=== PATIENT | female | born 1935 | race African-American/Black ===

== ENCOUNTER 2023-10-11 16:47 | Inpatient (IN) ==
[2023-10-11 20:29] LABS: HEMOGLOBIN 13.5 g/dL (12.0-16.0); RED BLOOD COUNT 5.03 X10^6/uL (3.5-5.4)
[2023-10-11 20:35] LABS: BASOPHILS # (AUTO) 0.1 X10^3/uL (0.0-0.1); BASOPHILS % (AUTO) 1.1 % (0.2-1.0); EOSINOPHILS # (AUTO) 0.1 x10^3/uL (0.0-0.2); EOSINOPHILS % (AUTO) 2.5 % (0.9-2.9); HEMATOCRIT 41.6 % (36.0-47.0); LYMPHOCYTES # (AUTO) 2.3 X10^3/uL (1.3-2.9); LYMPHOCYTES % (AUTO) 50.6 % (21.0-51.0); MEAN CORPUSCULAR HEMOGLOBIN 26.9 pg (27.0-34.0); MEAN CORPUSCULAR HGB CONC 32.5 g/dL (33.0-35.0); MEAN CORPUSCULAR VOLUME 82.9 fL (80.0-100.0); MEAN PLATELET VOLUME 9.3 fL (7.4-11.0); MONOCYTES # (AUTO) 0.3 x10^3/uL (0.3-0.8); NEUTROPHILS # (AUTO) 1.8 x10^3/uL (2.2-4.8); NEUTROPHILS % (AUTO) 38.8 % (42.0-75.0); PLATELET COUNT 193 X10^3/uL (150.0-450.0); RED CELL DISTRIBUTION WIDTH 16.5 % (11.6-16.5); WHITE BLOOD COUNT 4.6 X10^3/uL (3.6-10.0)
[2023-10-11 20:38] LABS: INR 1.01 (0.8-1.3)
[2023-10-11 20:44] LABS: ALANINE AMINOTRANSFERASE 13 Units/L (12-78); ALBUMIN 3.2 g/dL (3.4-5.0); ALKALINE PHOSPHATASE 96 Units/L (46-116); ASPARTATE AMINO TRANSFERASE 19 Units/L (15-37); BLOOD UREA NITROGEN 14 mg/dL (7-18); CALCIUM 9.9 mg/dL (8.5-10.1); CARBON DIOXIDE 26.5 mmol/L (21-32); CHLORIDE 107 mmol/L (98-107); COR CA(FOR HYPOALB) 10.5 mg/dL (8.5-10.1); CREATININE 0.95 mg/dL (0.55-1.02); GLUCOSE 70 mg/dL (65-99); SODIUM 143 mmol/L (136-145); TOTAL PROTEIN 8.4 g/dL (6.4-8.2); eGFR NON BLACK RACES 59 (>60)
[2023-10-11 20:52] VITALS: BMI 19.3
[2023-10-11] MEDS: CRESTOR TAB 10 MG PO SCH (21:24)
[2023-10-11] MEDS: COREG TAB 3.125 MG PO SCH (21:25)
[2023-10-11] MEDS: HEPARIN SODIUM INJ 5000 UNITS IVP ONE (21:29)
[2023-10-11] MEDS: HEPARIN SODIUM IN D5W 25,000 UNITS/500 ML BAG IV PRN (21:49)
[2023-10-11] MEDS: NS 100 ML IV 100 ML ONE (22:50)
[2023-10-11] MEDS: OMNIPAQUE 350 mg/mL 50 mL BTL 50 ML ONE (22:50)
[2023-10-11] MEDS: OMNIPAQUE 350 mg/mL 100 mL BTL 100 ML ONE (22:50)
[2023-10-11] MEDS: LR 1,000 ML IV 1,000 ML IV SCH (23:29)
[2023-10-11] MEDS: HIBICLENS WASH EXT ONE (23:29)
--- NOTE | 2023-10-12 00:07 | CT ---
EXAM: CTA AORTA WITH RUNOFF HISTORY: to evalute critical ischemia right leg; COMPARISON: None. TECHNIQUE: Axial CT images of the abdomen, pelvis and lower extremities were obtained prior to and after the ad ministration of 150 mL Omnipaque 350 IV contrast during the arterial phase. Images were reformatted w ith a 3D angiographic technique for further evaluation. Radiation dose: 958.52 mGy-cm total DLP FINDINGS: Aorta: Atherosclerotic changes with no aneurysm. No clinically significant stenosis or occlusion. Mesenteric arteries/Celiac trunk: Atherosclerotic changes. No clinically significant stenosis, occlus ion or aneurysm. Renal arteries: Atherosclerotic changes. No clinically significant stenosis, occlusion or aneurysm. Right iliac arteries: Atherosclerotic changes. No clinically significant stenosis, occlusion or aneur ysm. Left iliac arteries: Atherosclerotic changes. No clinically significant stenosis, occlusion or aneury sm. Right femoral arteries/popliteal artery: Atherosclerotic changes. Moderate stenosis in the right supe rficial femoral artery secondary to atherosclerotic disease. Left femoral arteries/popliteal artery: Atherosclerotic changes. Stent in the left superficial femora l artery. No clinically significant stenosis or occlusion. Right infrapopliteal arteries: Atherosclerotic changes. No occlusion or aneurysm. 3 vessel runoff. Left infrapopliteal arteries: Atherosclerotic changes. No occlusion or aneurysm. 3 vessel runoff. Lung bases are clear. No acute osseous abnormality. Stomach and proximal small bowel appear normal. Solid visceral organs of the upper abdomen are unremarkable. Gallbladder appears normal. No biliary dilatation. Bilateral renal cysts. Otherwise, unremarkable appearance of the kidneys and ureters. No urinary calculus identified. Urinary bladder is unremarkable. Colonic diverticulosis without diverticulitis. Otherwise, unremarkable appearance of the large and small bowel. No evidence of acute appendicitis. Status post hysterectomy. No pneumoperitoneum. No free intra-abdominal fluid. No adenopathy. IMPRESSION: 1. No acute intra-abdominal abnormality identified. 2. Moderate atherosclerotic changes involving the right superficial femoral artery, popliteal artery and trifurcated arteries to the right lower extremity. Arterial structures remain patent. 3. Left superficial femoral artery stent in place with no clinically significant stenosis or occlusio n. Moderate atherosclerotic changes and stenosis involving the left popliteal arteries and trifurcat ed vessels of the left lower extremity. Arterial structures remain patent. 4. Colonic diverticulosis without diverticulitis. THIS IS AN ELECTRONICALLY VERIFIED FINAL REPORT 10/12/2023 12:03 AM - Electronically signed by Daniel Fung MD
[2023-10-12] MEDS ORDERED: CATAPRES TAB 0.2 MG ONE (02:02)
[2023-10-12] MEDS: CATAPRES TAB 0.2 MG PO ONE (02:05)
--- NOTE | 2023-10-12 08:08 | NOTE.SOAP ---
Soap Note Note for Day of Date of Exam: 10/12/23 Subjective Data Subjective Data: Patient admitted last night with diagnosis of critical ischemia of the right leg . Initially was hypertensive but that has been treated in our blood pressure is 133/ [address] CT angiogram did not show any significant disease or occlusion of the iliac artery as I suspected on the right side based on my exam .I could not feel any pulse in the right groin and most of her pain is rest pain of the right foot . There is diffused disease of the right superficial femoral and popliteal arteries on the right .CT angiogram does not correspond to the exam Objective Data Pulse Rate: 56 Respiratory Rate: 24 Blood Pressure: 133/63 O2 Sat by Pulse Oximetry: 96 Objective Data: as above , no palpable pulse in right groin Assessment Assessment: critical ischemia right leg Plan Plan: On table arteriogram right leg , possible arterial intervention right leg.
[2023-10-12] MEDS: NORVASC TAB 10 MG PO SCH (09:14)
[2023-10-12] MEDS: ZESTRIL TAB 40 MG PO SCH (09:14)
[2023-10-12] MEDS: COZAAR PO SCH (09:14)
--- NOTE | 2023-10-12 09:42 | EKG ---
Test Reason : Pt going to have surgery Blood Pressure : */* mmHG Vent. Rate : 53 BPM Atrial Rate : 53 BPM P-R Int : 158 ms QRS Dur : 146 ms QT Int : 464 ms P-R-T Axes : 60 -59 9 degrees QTc Int : 435 ms Sinus bradycardia with premature atrial complexes Right bundle branch block Left anterior fascicular block Bifascicular block Minimal voltage criteria for LVH, may be normal variant ( R in aVL ) Septal infarct , age undetermined Abnormal ECG No previous ECGs available Confirmed by Rob Sheikh MD ([id number]) on 10/12/2023 1:38:16 PM Referred By: Confirmed By: Rob Sheikh MD
[2023-10-12] MEDS ORDERED: HEPARIN SODIUM INJ 5000 UNITS ONE (12:10)
[2023-10-12] MEDS: HEPARIN SODIUM INJ 5000 UNITS IVP ONE (12:15)
[2023-10-12] MEDS: NS 1,000 ML IV 1,000 ML ONE (13:01)
[2023-10-12] MEDS: ANCEF VIAL 1 GRAM ONE (13:25)
[2023-10-12] MEDS: NS 100 ML IV 100 ML ONE (13:25)
[2023-10-12] MEDS: FENTANYL VIAL INJ 100 mcg ONE ×2 (13:27→16:31)
[2023-10-12] MEDS: VERSED ONE ×2 (13:27→16:30)
[2023-10-12] MEDS: DIPRIVAN VIAL 20 ML ONE ×4 (13:27→17:03)
[2023-10-12] MEDS ORDERED: KETAMINE HCL ONE (13:27)
[2023-10-12] MEDS: VISIPAQUE 100 ML ONE (13:52)
[2023-10-12] MEDS: HEPARIN SODIUM IN D5W 75,000 UNITS/1,500 ML BAG ONE (13:52)
[2023-10-12] MEDS: VISIPAQUE 50 ML ONE (13:52)
[2023-10-12] MEDS: MARCAINE 0.5% ONE ×2 (13:52→14:47)
[2023-10-12] MEDS: HEPARIN SODIUM INJ 5000 UNITS ONE ×3 (14:01→16:01)
[2023-10-12] MEDS: NS 500 ML IV 500 ML IV ONE ×2 (14:47→15:27)
[2023-10-12] MEDS: NEO-SYNEPHRINE INJ ONE (15:25)
[2023-10-12] MEDS: EPHEDRINE SULFATE INJ ONE (15:27)
[2023-10-12] MEDS: HESPAN IV IN NS 500 ML IV ONE (15:29)
[2023-10-12] MEDS: PROTAMINE SULFATE 50 MG VIAL ONE (17:10)
[2023-10-12] MEDS ORDERED: BARHEMSYS INJ IVP PRN (17:46)
[2023-10-12] MEDS ORDERED: BENADRYL INJ 50 MG VIAL IVP PRN (17:46)
[2023-10-12] MEDS ORDERED: ZOFRAN INJ 4 MG VIAL IVP PRN (17:46)
[2023-10-12] MEDS ORDERED: REGLAN INJ 10 MG VIAL IVP PRN (17:46)
[2023-10-12] MEDS ORDERED: DILAUDID INJ IVP PRN (17:46)
[2023-10-12 17:57] LABS: HEMATOCRIT 29.7 % (36.0-47.0)
[2023-10-12 17:58] LABS: HEMOGLOBIN 9.8 g/dL (12.0-16.0)
--- NOTE | 2023-10-13 00:26 | OR.IMMED ---
IMMEDIATE POST-OP NOTE Immediate Post-Op Note Date of surgery/procedure: 10/12/23 Pre-Op Diagnosis: critical ischemia right leg Post-Op Diagnosis: same Procedure: Aortogram. 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 Common femoral vein injured and repaired with significant blood loss Progress Notes: Returned to CCU, post op Hgb=9.8, Has CHANEL drain in the right groin.
[2023-10-13] MEDS: PERCOCET TAB 5/325 MG PO PRN (02:01)
[2023-10-13 05:22] LABS: BASOPHILS % (AUTO) 0.5 % (0.2-1.0); EOSINOPHILS % (AUTO) 0.4 % (0.9-2.9); HEMATOCRIT 29.8 % (36.0-47.0); HEMOGLOBIN 9.8 g/dL (12.0-16.0); LYMPHOCYTES # (AUTO) 1.1 X10^3/uL (1.3-2.9); MEAN CORPUSCULAR HEMOGLOBIN 27.2 pg (27.0-34.0); MEAN CORPUSCULAR VOLUME 82.5 fL (80.0-100.0); MEAN PLATELET VOLUME 9.9 fL (7.4-11.0); MONOCYTES # (AUTO) 0.4 x10^3/uL (0.3-0.8); MONOCYTES % (AUTO) 5.4 % (0.0-13.0); NEUTROPHILS # (AUTO) 6.3 x10^3/uL (2.2-4.8); NEUTROPHILS % (AUTO) 79.7 % (42.0-75.0); PLATELET COUNT 137 X10^3/uL (150.0-450.0); RED BLOOD COUNT 3.61 X10^6/uL (3.5-5.4); WHITE BLOOD COUNT 7.9 X10^3/uL (3.6-10.0)
[2023-10-13] MEDS: NovoLIN R (or HumuLIN R) SC PRN (11:17)
--- NOTE | 2023-10-13 15:23 | NOTE.SOAP ---
Soap Note Note for Day of Date of Exam: 10/13/23 Subjective Data Subjective Data: Post-operative day 1 after difficult right femoral endarterectomy and Patch angioplasty for completely occluded right common femoral artery .Required 1 unit of blood and post procedure hemoglobin was 9.9 .Hemoglobin 9.8 this morning .Patient stable without complaint, denies pain over right foot, right groin incision is not causing her much pain and she is to begin ambulation with walker later today. James Bentley drain in place with moderate output of old blood . Objective Data Pulse Rate: 62 Respiratory Rate: 21 Blood Pressure: 126/63 O2 Sat by Pulse Oximetry: 100 Objective Data: Awake and alert ,in bed ,no complaints of pain right foot warm ,incision right groin with no evidence of hematoma ,drain in place Assessment Assessment: POD # 1 after difficult rigth femoral endarterectomy with signidficant blood loss. Given 1 unit of blood yesterday. Remains stable hemodynamically Plan Plan: Will observe today.Encourage ambulation with Walker, plan discharge tomorrow
[2023-10-13] MEDS ORDERED: MILK OF MAGNESIA PO PRN (17:50)
[2023-10-13] MEDS: NORCO 7.5/325 MG TAB PO PRN (18:20)
[2023-10-13] MEDS: CATAPRES TAB 0.1 MG PO ONE (18:49)
[2023-10-13] MEDS: COLACE CAP 100 MG PO SCH (20:28)
[2023-10-14] MEDS: DILAUDID INJ IVP PRN ×2 (04:15→07:46)
[2023-10-14 05:25] LABS: BLOOD UREA NITROGEN 11 mg/dL (7-18); CALCIUM 8.1 mg/dL (8.5-10.1); CARBON DIOXIDE 27.8 mmol/L (21-32); CHLORIDE 108 mmol/L (98-107); CREATININE 0.67 mg/dL (0.55-1.02); GLUCOSE 101 mg/dL (65-99); POTASSIUM 3.3 mmol/L (3.5-5.1); SODIUM 143 mmol/L (136-145); eGFR NON BLACK RACES > 60 (>60)
[2023-10-14] MEDS: LOVENOX INJ 40 MG SYR SC SCH (09:45)
[2023-10-14] MEDS: OMNIPAQUE 350 mg/mL 50 mL BTL 50 ML ONE (10:32)
[2023-10-14] MEDS: OMNIPAQUE 350 mg/mL 100 mL BTL 100 ML ONE (10:32)
--- NOTE | 2023-10-14 10:42 | CT ---
EXAM: CTA AORTA WITH RUNOFF HISTORY: Rt leg pain since surgery 2 days ago. pt had a Rt femoral endarterectomy; hx of open heart surgerydia betes and heart disease COMPARISON: CTA abdomen and pelvis with lower extremity runoff from 10/11/2023. TECHNIQUE: Axial CT imaging was performed through the abdomen, pelvis and lower extremities before and after the administration of IV contrast. 3D reconstructions utilizing axial MIPS imaging was performed and rev iewed. Dose reduction techniques including Automated Exposure Control (AEC) and adjustment of mA and kV were utilized. FINDINGS: ABDOMEN/PELVIS: Aorta: Normal in caliber and severely calcified. Celiac trunk: Moderate calcification of the splenic artery with associated 50-69% stenosis is again n oted. No new significant abnormality. SMA: Mild generalized calcification along the main portion of the vessel results in less than 50% brayden nosis. Renal arteries: Unchanged greater than 70% stenosis of the left renal artery near its origin and 50-6 9% stenosis of the right renal artery near its origin. [place]: Occluded at its origin with distal reconstitution of flow. Right iliac arteries: The right external iliac artery is occluded. The common and internal iliac art eries are patent. No other significant interval changes. Left iliac arteries: Patent with similar severe generalized atherosclerosis, less than 50% stenosis o f the common and external iliac arteries and greater than 70% stenosis along the internal iliac arter y. Additional findings: No new acute nonvascular findings. RIGHT LOWER EXTREMITY: Common femoral artery: Occluded. Profunda femoral artery: Patent with moderate atherosclerosis without high-grade obstruction. Superficial femoral artery: Patent with similar severe atherosclerosis and multifocal near total occl usion along the distal 3rd of its course. Popliteal artery: Similar severe atherosclerosis with multifocal greater than 70% stenosis versus mario r total occlusion. Anterior tibial artery: Occluded at its origin similarly without distal reconstitution of flow. Tibioperoneal trunk: No significant abnormality. Posterior tibial artery: Moderately calcified with multifocal short-segment occlusions with intermitt ent reconstitution of flow. Peroneal artery: No significant abnormality. Additional findings: No acute nonvascular findings. Expected postoperative changes along the right g roin. LEFT LOWER EXTREMITY: Common femoral artery: Severely calcified with new short-segment occlusion/near total occlusion just above the origin of the superficial femoral artery. Profunda femoral artery: No significant abnormality. Superficial femoral artery: Patent with prior stenting of the entire vessel. Similar 50-69% stenosis along the distal 3rd of the vessel. Popliteal artery: Similar findings of greater than 70% stenosis versus near total occlusion along the distal 3rd of the vessel with severe atherosclerosis. Anterior tibial artery: Occluded with reconstitution of flow along the dorsalis pedis artery. Tibioperoneal trunk: Similar moderate calcification with associated 50% stenosis. Posterior tibial artery: Occluded without distal reconstitution of flow. Peroneal artery: No significant abnormality. Additional findings: No acute nonvascular findings. IMPRESSION: 1. New occlusion of the right external iliac artery with persistent occlusion of the right common fe moral artery. 2. Overall similar severe bilateral lower extremity peripheral artery disease detailed above, compar ed to the recent CTA from 10/11/2023. 3. Additional unchanged findings as above in the abdomen and pelvis. THIS IS AN ELECTRONICALLY VERIFIED FINAL REPORT 10/14/2023 10:38 AM - Electronically signed by Holden Mendez MD
[2023-10-14] MEDS: K-DUR TAB 20 MEQ PO SCH (13:00)
[2023-10-14] MEDS: MAG-OX TAB PO SCH (13:00)
--- NOTE | 2023-10-14 14:31 | DR.PROGNOT ---
HOSPITAL PROGRESS NOTE Progress Note for Day of: Progress Note Date: 10/14/23 Chief Complaint Chief Complaint: c/o pain both feet with some improvement with pain meds . CTA showed occlusion of RT external iliac and common femoral artery with PVD . Pt is alert , Past Medical Family Social History Allergies: Allergies No Known Drug Allergies [NKDA] Allergy (Verified 10/11/23 20:55) Vital Signs Vital Signs: Vital Signs Temperature 97.6 F Temperature 98.0 F Pulse Rate 64 Pulse Rate 79 Pulse Rate 77 Pulse Rate 66 Pulse Rate 62 Pulse Rate 62 Pulse Rate 62 Pulse Rate 59 Pulse Rate 64 Pulse Rate 65 Pulse Rate 64 Pulse Rate 61 Pulse Rate 69 Pulse Rate 69 Pulse Rate 67 Pulse Rate 74 Pulse Rate 78 Pulse Rate 68 Pulse Rate 67 Respiratory Rate 23 Respiratory Rate 29 Respiratory Rate 37 Respiratory Rate 20 Respiratory Rate 27 Respiratory Rate 26 Respiratory Rate 22 Respiratory Rate 26 Respiratory Rate 24 Respiratory Rate 24 Respiratory Rate 28 Respiratory Rate 27 Respiratory Rate 20 Respiratory Rate 23 Respiratory Rate 25 Respiratory Rate 34 Respiratory Rate 19 Respiratory Rate 22 Respiratory Rate 19 Respiratory Rate 20 Respiratory Rate 36 Respiratory Rate 33 Blood Pressure 181/80 Blood Pressure 169/74 Blood Pressure 182/77 Blood Pressure 182/127 Blood Pressure 183/77 Blood Pressure 198/82 Blood Pressure 217/84 Blood Pressure 187/78 Blood Pressure 198/79 Blood Pressure 177/73 Blood Pressure 142/58 O2 Sat by Pulse Oximetry 90 O2 Sat by Pulse Oximetry 92 O2 Sat by Pulse Oximetry 91 O2 Sat by Pulse Oximetry 97 O2 Sat by Pulse Oximetry 95 O2 Sat by Pulse Oximetry 94 O2 Sat by Pulse Oximetry 94 O2 Sat by Pulse Oximetry 95 O2 Sat by Pulse Oximetry 96 O2 Sat by Pulse Oximetry 96 O2 Sat by Pulse Oximetry 97 O2 Sat by Pulse Oximetry 92 O2 Sat by Pulse Oximetry 96 O2 Sat by Pulse Oximetry 91 O2 Sat by Pulse Oximetry 94 O2 Sat by Pulse Oximetry 95 O2 Sat by Pulse Oximetry 98 O2 Sat by Pulse Oximetry 99 Physical Exam Oriented: Normal Eyes: Normal Throat: Normal Respiratory: Normal Cardiovascular: Normal GI:Auscultation: Normal GI:Palpation: Normal Musculoskeletal: Pulse Deficit (no distal pulses both legs , intact skin with cool RT foot .. dressing intact with minimal drainage .) Mood Description: Calm Speech Pattern: Clear and Appropriate Laboratory and Diagnostics 10/13/23 04:00 10/14/23 04:01 Labs: Laboratory WBC 7.9 X10^3/uL (3.6-10.0) 10/13/23 04:00 RBC 3.61 X10^6/uL (3.5-5.4) 10/13/23 04:00 Hgb 9.8 g/dL (12.0-16.0) L 10/13/23 04:00 Hct 29.8 % (36.0-47.0) L 10/13/23 04:00 MCV 82.5 fL (80.0-100.0) 10/13/23 04:00 MCH 27.2 pg (27.0-34.0) 10/13/23 04:00 MCHC 33.0 g/dL (33.0-35.0) 10/13/23 04:00 RDW 16.0 % (11.6-16.5) 10/13/23 04:00 Plt Count 137 X10^3/uL (150.0-450.0) L 10/13/23 04:00 MPV 9.9 fL (7.4-11.0) 10/13/23 04:00 Neut % (Auto) 79.7 % (42.0-75.0) H 10/13/23 04:00 Lymph % (Auto) 14.0 % (21.0-51.0) L 10/13/23 04:00 [place] % (Auto) 5.4 % (0.0-13.0) 10/13/23 04:00 Eos % (Auto) 0.4 % (0.9-2.9) L 10/13/23 04:00 Baso % (Auto) 0.5 % (0.2-1.0) 10/13/23 04:00 Neut # (Auto) 6.3 x10^3/uL (2.2-4.8) H 10/13/23 04:00 Lymph # (Auto) 1.1 X10^3/uL (1.3-2.9) L 10/13/23 04:00 [place] # (Auto) 0.4 x10^3/uL (0.3-0.8) 10/13/23 04:00 Eos # (Auto) 0.0 x10^3/uL (0.0-0.2) 10/13/23 04:00 Baso # (Auto) 0.0 X10^3/uL (0.0-0.1) 10/13/23 04:00 Absolute Nucleated RBC 0.0 /100WBC 10/13/23 04:00 PT 13.1 SECONDS (11.8-14.3) 10/11/23 20:18 INR Target Range - 10/11/23 20:18 INR 1.01 (0.8-1.3) 10/11/23 20:18 APTT 53.0 SECONDS (22.9-36.5) H 10/12/23 10:31 PTT Comment - 10/12/23 10:31 Sodium 143 mmol/L (136-145) 10/14/23 04:01 Corrected Sodium TNP 10/14/23 04:01 Potassium 3.3 mmol/L (3.5-5.1) L 10/14/23 04:01 Chloride 108 mmol/L (98-107) H 10/14/23 04:01 Carbon Dioxide 27.8 mmol/L (21-32) 10/14/23 04:01 BUN 11 mg/dL (7-18) 10/14/23 04:01 Creatinine 0.67 mg/dL (0.55-1.02) 10/14/23 04:01 Est GFR (MDRD) Af Amer > 60 (>60) 10/14/23 04:01 Est GFR (MDRD) Non-Af > 60 (>60) 10/14/23 04:01 Glucose 101 mg/dL (65-99) H 10/14/23 04:01 POC Glucose (mg/dL) 165 mg/dL (65-99) H 10/14/23 11:31 Calcium 8.1 mg/dL (8.5-10.1) L 10/14/23 04:01 Corrected Calcium 10.5 mg/dL (8.5-10.1) H 10/11/23 20:18 Magnesium 1.5 mg/dL (2.0-2.9) L 10/14/23 04:01 Total Bilirubin 0.30 mg/dL (0.2-1.0) 10/11/23 20:18 AST 19 Units/L (15-37) 10/11/23 20:18 ALT 13 Units/L (12-78) 10/11/23 20:18 Alkaline Phosphatase 96 Units/L (46-116) 10/11/23 20:18 Total Protein 8.4 g/dL (6.4-8.2) H 10/11/23 20:18 Albumin 3.2 g/dL (3.4-5.0) L 10/11/23 20:18 Globulin 5.2 g/dL (2.5-4.5) H 10/11/23 20:18 Albumin/Globulin Ratio 0.6 Ratio (1.1-2.1) L 10/11/23 20:18 Blood Type A POSITIVE 10/12/23 15:26 Antibody Screen Negative 10/12/23 15:26 Crossmatch See Detail 10/12/23 15:26 Assessment and Plan 1: PO vascular surgery RT leg with ischemic pain . same care . on Lovenox and pain meds .
[2023-10-14] MEDS: CONSULT PHARMACY - POTASSIUM & MAGNESIUM XX SCH (18:41)
--- NOTE | 2023-10-14 19:51 | NOTE.SOAP ---
Soap Note Note for Day of Date of Exam: 10/14/23 Subjective Data Subjective Data: I am out of town . Patient seen today by Dr. Soriano. Right foot reported as cool with no doppler flow right foot which is back to the pre-op baseline Objective Data Pulse Rate: 64 Respiratory Rate: 29 Blood Pressure: 170/76 O2 Sat by Pulse Oximetry: 96 Objective Data: CTA shows thrombosis of right common femoral artery and distal right external iliac artery. Rest od SFA open with some distal disease noted of the right posterior tibial artery. 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 luis on therapeutic Lovenox dose BID. Tentively plan intervention of thrombosis right leg 729 AM. Right foot with no tissue loss. Only cool .
--- NOTE | 2023-10-14 20:54 | DR.H&P ---
H&P History & Physical for Day of: H&P Date: 10/12/23 Chief Complaint Chief Complaint: Rest pain right foot Allergies Allergies Allergy/AdvReac Type Severity Reaction Status Date / Time No Known Drug Allergies Allergy Verified 10/11/23 20:55 [NKDA] History of Present Illness History of Present Illness: 89 yo female who is in good health and was walking until recently with rest pain right foot. No tissue loss of the left foot. Past medical history of diabetes, CAD , hyprtension who has had progression of right foot rest pain to the point she is no longer walking . Referred to me by Dr. Calderon. Past Medical History Past Medical History: Coronary Artery Disease, Diabetes, Dyslipidemia and Hypertension Past Surgical History Surgical History: Angioplasty/Stents and CABG/Valve Surgery Family History Family Medical History: Diabetes Mellitus and Hypertension Social History Does patient currently use any type of tobacco product: No Have you used tobacco products in the last 12 months: No Type of Tobacco Use: None Does any household member use tobacco: No Alcohol Use: None Drug Use: None Medications Home Medications: Home Medications Medication Instructions Recorded Confirmed Type carvedilol 3.125 mg tablet 3.125 mg PO BID 10/13/23 10/13/23 History clopidogrel 75 mg tablet 75 mg PO DAILY 10/13/23 10/13/23 History glipizide 10 mg tablet, extended 10 mg PO DAILY 10/13/23 10/13/23 History release 24 hr hydrochlorothiazide 25 mg tablet 25 mg PO DAILY 10/13/23 10/13/23 History hydrocodone 7.5 mg-acetaminophen 1 tab PO QID PRN 10/13/23 10/13/23 History 325 mg tablet isosorbide mononitrate 30 mg 30 mg PO DAILY 10/13/23 10/13/23 History tablet,extended release 24 hr lorazepam 0.5 mg tablet 0.5 mg PO QDAY 10/13/23 10/13/23 History losartan 100 mg tablet 100 mg PO QDAY 10/13/23 10/13/23 History rosuvastatin 40 mg tablet 40 mg PO QDAY 10/13/23 10/13/23 History sitagliptin phos 100 mg-metformin 1 tab PO QPM 10/13/23 10/13/23 History ER 1,000 mg tablet,extend rel 24h mp (Janumet XR) trazodone 50 mg tablet 50 mg PO QHS 10/13/23 10/13/23 History Labs 10/13/23 04:00 10/14/23 04:01 Labs: Laboratory WBC 7.9 X10^3/uL (3.6-10.0) 10/13/23 04:00 RBC 3.61 X10^6/uL (3.5-5.4) 10/13/23 04:00 Hgb 9.8 g/dL (12.0-16.0) L 10/13/23 04:00 Hct 29.8 % (36.0-47.0) L 10/13/23 04:00 MCV 82.5 fL (80.0-100.0) 10/13/23 04:00 MCH 27.2 pg (27.0-34.0) 10/13/23 04:00 MCHC 33.0 g/dL (33.0-35.0) 10/13/23 04:00 RDW 16.0 % (11.6-16.5) 10/13/23 04:00 Plt Count 137 X10^3/uL (150.0-450.0) L 10/13/23 04:00 MPV 9.9 fL (7.4-11.0) 10/13/23 04:00 Neut % (Auto) 79.7 % (42.0-75.0) H 10/13/23 04:00 Lymph % (Auto) 14.0 % (21.0-51.0) L 10/13/23 04:00 [place] % (Auto) 5.4 % (0.0-13.0) 10/13/23 04:00 Eos % (Auto) 0.4 % (0.9-2.9) L 10/13/23 04:00 Baso % (Auto) 0.5 % (0.2-1.0) 10/13/23 04:00 Neut # (Auto) 6.3 x10^3/uL (2.2-4.8) H 10/13/23 04:00 Lymph # (Auto) 1.1 X10^3/uL (1.3-2.9) L 10/13/23 04:00 [place] # (Auto) 0.4 x10^3/uL (0.3-0.8) 10/13/23 04:00 Eos # (Auto) 0.0 x10^3/uL (0.0-0.2) 10/13/23 04:00 Baso # (Auto) 0.0 X10^3/uL (0.0-0.1) 10/13/23 04:00 Absolute Nucleated RBC 0.0 /100WBC 10/13/23 04:00 PT 13.1 SECONDS (11.8-14.3) 10/11/23 20:18 INR Target Range - 10/11/23 20:18 INR 1.01 (0.8-1.3) 10/11/23 20:18 APTT 53.0 SECONDS (22.9-36.5) H 10/12/23 10:31 PTT Comment - 10/12/23 10:31 Sodium 143 mmol/L (136-145) 10/14/23 04:01 Corrected Sodium TNP 10/14/23 04:01 Potassium 3.3 mmol/L (3.5-5.1) L 10/14/23 04:01 Chloride 108 mmol/L (98-107) H 10/14/23 04:01 Carbon Dioxide 27.8 mmol/L (21-32) 10/14/23 04:01 BUN 11 mg/dL (7-18) 10/14/23 04:01 Creatinine 0.67 mg/dL (0.55-1.02) 10/14/23 04:01 Est GFR (MDRD) Af Amer > 60 (>60) 10/14/23 04:01 Est GFR (MDRD) Non-Af > 60 (>60) 10/14/23 04:01 Glucose 101 mg/dL (65-99) H 10/14/23 04:01 POC Glucose (mg/dL) 184 mg/dL (65-99) H 10/14/23 19:23 Calcium 8.1 mg/dL (8.5-10.1) L 10/14/23 04:01 Corrected Calcium 10.5 mg/dL (8.5-10.1) H 10/11/23 20:18 Magnesium 1.5 mg/dL (2.0-2.9) L 10/14/23 04:01 Total Bilirubin 0.30 mg/dL (0.2-1.0) 10/11/23 20:18 AST 19 Units/L (15-37) 10/11/23 20:18 ALT 13 Units/L (12-78) 10/11/23 20:18 Alkaline Phosphatase 96 Units/L (46-116) 10/11/23 20:18 Total Protein 8.4 g/dL (6.4-8.2) H 10/11/23 20:18 Albumin 3.2 g/dL (3.4-5.0) L 10/11/23 20:18 Globulin 5.2 g/dL (2.5-4.5) H 10/11/23 20:18 Albumin/Globulin Ratio 0.6 Ratio (1.1-2.1) L 10/11/23 20:18 Blood Type A POSITIVE 10/12/23 15:26 Antibody Screen Negative 10/12/23 15:26 Crossmatch See Detail 10/12/23 15:26 Review of Systems Constitutional: See HPI Eyes: No Symptoms Reported ENT: No Symptoms Reported Respiratory: No Symptoms Reported Cardiovascular: See HPI Gastrointestinal: No Symptoms Reported Genitourinary: No Symptoms Reported Musculoskeletal: No Symptoms Reported Skin: No Symptoms Reported Neurological: No Symptoms Reported Physical Exam Vital Signs: Vital Signs Temperature 98.4 F Temperature 97.6 F Pulse Rate 65 Pulse Rate 64 Pulse Rate 64 Pulse Rate 78 Pulse Rate 69 Pulse Rate 63 Pulse Rate 64 Pulse Rate 62 Pulse Rate 64 Pulse Rate 79 Pulse Rate 77 Respiratory Rate 22 Respiratory Rate 28 Respiratory Rate 29 Respiratory Rate 28 Respiratory Rate 29 Respiratory Rate 44 Respiratory Rate 29 Respiratory Rate 25 Respiratory Rate 22 Respiratory Rate 19 Respiratory Rate 23 Respiratory Rate 29 Respiratory Rate 37 Blood Pressure 152/70 Blood Pressure 170/76 Blood Pressure 178/76 Blood Pressure 175/76 Blood Pressure 160/107 Blood Pressure 160/107 Blood Pressure 150/66 Blood Pressure 160/67 Blood Pressure 160/67 Blood Pressure 181/80 O2 Sat by Pulse Oximetry 96 O2 Sat by Pulse Oximetry 96 O2 Sat by Pulse Oximetry 96 O2 Sat by Pulse Oximetry 97 O2 Sat by Pulse Oximetry 95 O2 Sat by Pulse Oximetry 95 O2 Sat by Pulse Oximetry 95 O2 Sat by Pulse Oximetry 93 O2 Sat by Pulse Oximetry 90 O2 Sat by Pulse Oximetry 92 O2 Sat by Pulse Oximetry 91 Oriented: Normal, Person and Place Eyes: Normal Ear: Normal Nose: Normal Throat: Normal Respiratory: Clear Throughout Cardiovascular: Normal and Other (Both feet cool ,worse on the right , absent palpable pulse in the right groin ,absent Doppler signals at the right ankle ,monophasic Doppler signals left ankle ) : Normal Auscultation: Bowel Sounds: Normal Palpation: Normal Tenderness: Normal Skin: Normal Musculoskeletal: Normal Psychiatric: Normal Mood Description: Calm Affect: Normal Speech Pattern: Clear Assessment/Plan (1) Atherosclerosis of [place] arteries of extremities with rest pain, right leg: Status: Acute Plan: Admit , heparin drip, CTA of aorta and bilateral lower extremity runoff (2) Atherosclerosis of [place] arteries of extremities with rest pain, left leg: Status: Acute Plan: Once the critical ischemia of the right leg has been addressed the left leg can be addresed in the near future probably as an outpatient. (3) Type 2 diabetes mellitus without complications: Status: Acute Plan: sliding scale insulin (4) Essential (primary) hypertension: Status: Acute Plan: home medictions (5) Dyslipidemia: Status: Acute Plan: Home medications (6) Chronic ischemic heart disease, unspecified: Status: Acute Plan: home medications
--- NOTE | 2023-10-14 22:11 | DR.OPNOTE ---
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 The left groin and entire right leg were prepped and draped in sterile fashion. The patient was given intravenous sedation supervised by myself. Time out for the procedure obtained. Ultrasound used to identify the left femoral artery and the skin overlying it infiltrated with 0.5% Marcaine. Ultrasound then used to guide puncture of the left femoral artery and a 0.012 inch guide wire was placed. Incision made over the guide wire at the skin edge with a # 11 knife blade and a micro sheath placed over the guide wire into the left femoral artery The small guidewire exchanged for a 0.035 inch Advantage glide wire and the micro sheath exchanged for a 5 Fr vascular sheath Patient given 5000 units of intravenous heparin. Omni catheter was placed over the guide wire into the aorta and diagnostic aortogram carried out with the power injector showing normal aorta and iliac arteries with complete occlusion of the right common femoral artery with reconstitution of the right superficial femoral artery. Omni catheter was used to steer the guide wire down the right common iliac artery to the distal right external iliac artery . Omni catheter was exchanged for a Rupert catheter and sequential arteriograms carried out of the right lower extremity showing the complete occlusion of the right commn femoral artery. The 5 Fr sheath in the left groin in exchanged for a 7 Fr destination sheath which was parked in distal right externa iliac artery. Despite multiple attempts the complete occlusion of the right common femoral artety could not be crossed with a wire. Artetiogram of the right leg obtained from the groin showed diffuse disease thoughot the ruNoff of the right leg with no obvious addtional occlusion . The runoff to the right foot was via the posterior tibial artery. At this point I elected to convert to an open operation and perform right femoral endarterectomy and patch angioplasty. Vertical incision was made in the right groin with a number 15 blade knife and sharp dissection carried out identifying the very adherent right common femoral artery .Dissection was carried proximally having to divide the inguinal ligament to get to soft vessel above the plaque in the common femoral artery .Dissection carried distally and vessel lops placed around the superficial femoral artery and the profunda femoris artery .On attempting to further dissect out the common femoral artery I got into the right femoral vein and lost a significant amount of blood. the vein was repaired with running 5-0 Prolene suture and multiple branches clipped with metal clips .Once the bleeding was controlled the patient was given 3000 units of IV heparin and the external like artery clamped above and the other vessels controlled with the vessel loops. The common femoral artery opened with a number 11 knife blade and Pott's scissors identifying a very inflamed and densely adherent complete occlusion with plaque. [place] dissector used to dissect away the plaque from the arterial wall .After the plate removed in its entirety multiple areas of small floating material removed from the artery wall itself .The patient had a good endpoint proximally with open vessel which was flushed by opening the clamp then closing it. A #3 Saundra catheter was passed distally and there was no clot in the superficial femoral artery .A 8 millimeter by 8 centimeter bovien pericardial graft with selected and soaked in saline and then sewn in position to cover the arteriotomy with running 5-0 Prolene suture . Clamp removed and vessel loops loosened and the only bleeding was from the needle holes which was controlled with Surgicell .Patient given IV Protamine .When there was no further blood loss from the needle holes a flat CHANEL drainwas placed in the incision and brought out through a separate stab incision and secured to the skin with a silk suture .The right groin closed in 2 layers of running 3-0Vicrylsuture and the skin closed with skin [place] .Patient taken to PACU and then to the CCU . Type of Anesthesia: Local (0.5% Marcaine ) Anesthesia Comment: plus MAC Findings: complete occlusion right common femoral artery not mentioned on CTA report, one vessel runoff right leg via right posterior tibial artery, possible sigfificant disease of the right posterior tibial artery. Type of Fluids Used:: Lactated Ringers Total Amount of Fluid Infused:: 2150cc crystalloid, 500 cc Hespan, 1 unit PRBCs EBL: 1100 cc Drains/Tubes Placed: James Bentley (x1 right groin incision) Complications:: None. Patient remained stable the entire case done with local anethesia and IV sedation. Needle/Sponge Count:: correct Disposition/Condition: Pt. tolerated procedure without difficulty. Taken to CCU in stable condition.
[2023-10-15 04:43] LABS: BASOPHILS % (AUTO) 0.6 % (0.2-1.0); EOSINOPHILS # (AUTO) 0.2 x10^3/uL (0.0-0.2); EOSINOPHILS % (AUTO) 2.8 % (0.9-2.9); HEMATOCRIT 26.9 % (36.0-47.0); HEMOGLOBIN 8.9 g/dL (12.0-16.0); LYMPHOCYTES # (AUTO) 1.4 X10^3/uL (1.3-2.9); LYMPHOCYTES % (AUTO) 19.8 % (21.0-51.0); MEAN CORPUSCULAR HEMOGLOBIN 27.4 pg (27.0-34.0); MEAN CORPUSCULAR HGB CONC 33.1 g/dL (33.0-35.0); MEAN CORPUSCULAR VOLUME 82.8 fL (80.0-100.0); MEAN PLATELET VOLUME 9.9 fL (7.4-11.0); MONOCYTES # (AUTO) 0.5 x10^3/uL (0.3-0.8); MONOCYTES % (AUTO) 6.4 % (0.0-13.0); NEUTROPHILS # (AUTO) 4.9 x10^3/uL (2.2-4.8); NEUTROPHILS % (AUTO) 70.4 % (42.0-75.0); PLATELET COUNT 126 X10^3/uL (150.0-450.0); RED BLOOD COUNT 3.24 X10^6/uL (3.5-5.4); RED CELL DISTRIBUTION WIDTH 16.5 % (11.6-16.5)
[2023-10-15 04:48] LABS: BLOOD UREA NITROGEN 9 mg/dL (7-18); CALCIUM 8.2 mg/dL (8.5-10.1); CARBON DIOXIDE 27.8 mmol/L (21-32); CHLORIDE 107 mmol/L (98-107); COR NA(FOR HYPERGLY) 144 mmol/L (136-145); CREATININE 0.65 mg/dL (0.55-1.02); GLUCOSE 126 mg/dL (65-99); MAGNESIUM 1.8 mg/dL (2.0-2.9); POTASSIUM 3.7 mmol/L (3.5-5.1); SODIUM 143 mmol/L (136-145); eGFR NON BLACK RACES > 60 (>60)
[2023-10-15] MEDS: K-DUR TAB 20 MEQ PO SCH (08:30)
[2023-10-15] MEDS: MAG-OX TAB PO SCH (08:31)
[2023-10-15] MEDS: CONSULT PHARMACY - POTASSIUM & MAGNESIUM XX SCH (18:57)
--- NOTE | 2023-10-15 22:38 | NOTE.SOAP ---
Soap Note Note for Day of Date of Exam: 10/15/23 Subjective Data Subjective Data: POD #3 after rigth femoral endarterectomy and patch. Now with thrombosis of the site of the surgery and the distal right external iliac artery. Objective Data Pulse Rate: 61 Respiratory Rate: 31 Blood Pressure: 126/58 O2 Sat by Pulse Oximetry: 98 Objective Data: right foot cool,moves all toes .Denies ;pain but has been taking po Percocet regularly, absent doppler signal right ankle , CTA findings as above Assessment Assessment: S/P right femoral endarterectomy, now on therapeutic Lovenox and has thrombosis of the right femoral artery Plan Plan: To OR tomorrow for on table arteriogram, possible thrombectomy, possible stent
[2023-10-16 05:15] LABS: BASOPHILS % (AUTO) 0.3 % (0.2-1.0); EOSINOPHILS # (AUTO) 0.3 x10^3/uL (0.0-0.2); EOSINOPHILS % (AUTO) 4.8 % (0.9-2.9); HEMATOCRIT 27.8 % (36.0-47.0); HEMOGLOBIN 9.2 g/dL (12.0-16.0); MEAN CORPUSCULAR HEMOGLOBIN 27.3 pg (27.0-34.0); MEAN CORPUSCULAR VOLUME 82.7 fL (80.0-100.0); MEAN PLATELET VOLUME 10.5 fL (7.4-11.0); MONOCYTES # (AUTO) 0.3 x10^3/uL (0.3-0.8); MONOCYTES % (AUTO) 5.1 % (0.0-13.0); NEUTROPHILS # (AUTO) 4.6 x10^3/uL (2.2-4.8); NEUTROPHILS % (AUTO) 73.8 % (42.0-75.0); PLATELET COUNT 141 X10^3/uL (150.0-450.0); RED BLOOD COUNT 3.36 X10^6/uL (3.5-5.4); RED CELL DISTRIBUTION WIDTH 16.4 % (11.6-16.5); WHITE BLOOD COUNT 6.2 X10^3/uL (3.6-10.0)
[2023-10-16 05:24] LABS: MAGNESIUM 1.9 mg/dL (2.0-2.9); POTASSIUM 4.1 mmol/L (3.5-5.1)
[2023-10-16] MEDS: NS 1,000 ML IV 1,000 ML ONE (07:23)
[2023-10-16] MEDS: ANCEF VIAL 1 GRAM ONE (07:51)
[2023-10-16] MEDS: NS 100 ML IV 100 ML ONE (07:51)
[2023-10-16] MEDS: FENTANYL VIAL INJ 100 mcg ONE (07:54)
[2023-10-16] MEDS: KETAMINE 50 MG/5 ML-NACL SYRNG ONE (07:54)
[2023-10-16] MEDS: VERSED ONE (07:54)
[2023-10-16] MEDS: DIPRIVAN VIAL 20 ML ONE (08:07)
[2023-10-16] MEDS: PRECEDEX INJ VIAL ONE (08:07)
[2023-10-16] MEDS: XYLOCAINE 2 % (PLAIN) ONE (08:07)
[2023-10-16] MEDS: OFIRMEV IV 1000 MG VIAL 1,000 MG/100 ML VIAL IV ONE (08:07)
[2023-10-16] MEDS: PEPCID 20 MG VIAL ONE (08:07)
[2023-10-16] MEDS: ZOFRAN INJ 4 MG VIAL ONE (08:07)
[2023-10-16] MEDS: MARCAINE 0.5% ONE (08:21)
[2023-10-16] MEDS: VISIPAQUE 50 ML ONE (08:21)
[2023-10-16] MEDS: HEPARIN SODIUM IN D5W 75,000 UNITS/1,500 ML BAG ONE (08:21)
[2023-10-16] MEDS: NS 500 ML IV 500 ML IV ONE ×2 (08:21→09:19)
[2023-10-16] MEDS: VISIPAQUE 100 ML ONE (08:21)
[2023-10-16] MEDS: HEPARIN SODIUM INJ 5000 UNITS ONE ×2 (08:21→08:30)
[2023-10-16] MEDS: NEO-SYNEPHRINE INJ ONE (08:23)
[2023-10-16] MEDS: ROBINUL ONE (08:28)
[2023-10-16] MEDS: DECADRON INJ ONE (08:34)
[2023-10-16] MEDS: ATROPINE SULFATE ONE (09:04)
[2023-10-16] MEDS: HESPAN IV IN NS 500 ML IV ONE (09:18)
[2023-10-16] MEDS: PROTAMINE SULFATE 50 MG VIAL ONE (09:45)
[2023-10-16] MEDS: VASOSTRICT INJ 20 UNITS VIAL ONE (09:52)
[2023-10-16] MEDS ORDERED: REGLAN INJ 10 MG VIAL IVP PRN (10:13)
[2023-10-16] MEDS ORDERED: ZOFRAN INJ 4 MG VIAL IVP PRN (10:13)
[2023-10-16] MEDS ORDERED: DILAUDID INJ IVP PRN (10:13)
[2023-10-16] MEDS ORDERED: BARHEMSYS INJ IVP PRN (10:13)
[2023-10-16] MEDS ORDERED: BENADRYL INJ 50 MG VIAL IVP PRN (10:13)
[2023-10-16 11:39] LABS: BASOPHILS % (AUTO) 0.1 % (0.2-1.0); EOSINOPHILS # (AUTO) 0.1 x10^3/uL (0.0-0.2); EOSINOPHILS % (AUTO) 0.5 % (0.9-2.9); HEMATOCRIT 32.5 % (36.0-47.0); HEMOGLOBIN 10.6 g/dL (12.0-16.0); LYMPHOCYTES # (AUTO) 0.3 X10^3/uL (1.3-2.9); LYMPHOCYTES % (AUTO) 3.2 % (21.0-51.0); MEAN CORPUSCULAR HEMOGLOBIN 27.7 pg (27.0-34.0); MEAN CORPUSCULAR HGB CONC 32.7 g/dL (33.0-35.0); MEAN CORPUSCULAR VOLUME 84.7 fL (80.0-100.0); MEAN PLATELET VOLUME 9.4 fL (7.4-11.0); MONOCYTES # (AUTO) 0.2 x10^3/uL (0.3-0.8); MONOCYTES % (AUTO) 1.6 % (0.0-13.0); NEUTROPHILS # (AUTO) 9.7 x10^3/uL (2.2-4.8); NEUTROPHILS % (AUTO) 94.6 % (42.0-75.0); PLATELET COUNT 111 X10^3/uL (150.0-450.0); RED BLOOD COUNT 3.83 X10^6/uL (3.5-5.4); RED CELL DISTRIBUTION WIDTH 15.5 % (11.6-16.5); WHITE BLOOD COUNT 10.3 X10^3/uL (3.6-10.0)
--- NOTE | 2023-10-16 11:44 | OR.IMMED ---
IMMEDIATE POST-OP NOTE Immediate Post-Op Note Date of surgery/procedure: 10/16/23 Pre-Op Diagnosis: Thrombosed right common femoral artery and right distal external artery following right femoral endartertectomy and patch andgioplasty for completely occluded right common femoral artery. Post-Op Diagnosis: same Procedure: Aortogram ,arteriogram right leg ,Angiojet thrombectomy of the right iliac artery and right common femoral artery, stenting write externally like artery at area of probable clamp injury ,covered stent placement of proximal femoral patch patch to stop bleeding . Description of Procedure: see operative note Surgeon/Pay Agent: Adriel Findings: Clamp injury of right external iliac artery requiring stent , possible stenosis of proximal femoral artery patch placement Estimated Blood Loss: 300 cc Complications: none Progress Notes: return to ICU ,monitor vitals and blood count ,monitor any bleeding from the right groin
[2023-10-16 12:00] LABS: BAND NEUTROPHILS % 6 % (0-10); PLATELET MORPHOLOGY COMMENT NORMAL (NORMAL)
[2023-10-16 15:32] LABS: BASOPHILS % (AUTO) 0.2 % (0.2-1.0); EOSINOPHILS % (AUTO) 0.1 % (0.9-2.9); HEMATOCRIT 33.6 % (36.0-47.0); HEMOGLOBIN 11.2 g/dL (12.0-16.0); LYMPHOCYTES # (AUTO) 0.4 X10^3/uL (1.3-2.9); LYMPHOCYTES % (AUTO) 4.9 % (21.0-51.0); MEAN CORPUSCULAR HGB CONC 33.2 g/dL (33.0-35.0); MEAN CORPUSCULAR VOLUME 84.5 fL (80.0-100.0); MEAN PLATELET VOLUME 9.8 fL (7.4-11.0); MONOCYTES # (AUTO) 0.2 x10^3/uL (0.3-0.8); MONOCYTES % (AUTO) 2.5 % (0.0-13.0); NEUTROPHILS # (AUTO) 6.8 x10^3/uL (2.2-4.8); NEUTROPHILS % (AUTO) 92.3 % (42.0-75.0); PLATELET COUNT 131 X10^3/uL (150.0-450.0); RED BLOOD COUNT 3.98 X10^6/uL (3.5-5.4); RED CELL DISTRIBUTION WIDTH 15.3 % (11.6-16.5); WHITE BLOOD COUNT 7.4 X10^3/uL (3.6-10.0)
[2023-10-16 15:59] LABS: BAND NEUTROPHILS % 3 % (0-10)
[2023-10-16 16:00] LABS: PLATELET MORPHOLOGY COMMENT NORMAL (NORMAL)
--- NOTE | 2023-10-16 20:13 | NOTE.SOAP ---
Soap Note Note for Day of Date of Exam: 10/16/23 Subjective Data Subjective Data: Patient earlier today had percutaneously based thrombectomy of occluded right iliac artery and common femoral artery at sight of previous endarterectomy and patch , with stenting of the right external artery at sight of possible clamp injury and coverd stent placement over the proximal anastomosis of the patch in the right femoral artery. Patient stable the entire time since surgery.No bleeding, stable Hgb and warrm right foot. Denies left foot pain Objective Data Pulse Rate: 58 Respiratory Rate: 30 Blood Pressure: 148/66 O2 Sat by Pulse Oximetry: 100 Objective Data: Little out of right groin drain. Right groin incision flat and no hematoma. Hgb post op after 2 units PRBC = 10.6 and was 11.2 4 hours later. Right foot warm . Excellent right popliteal doppler signal. Good doppler signal in right AT vessel. All rest pain resolved. Assessment Assessment: Thrombosed arteries right leg . Resolved . See above Plan Plan: Advance diet to 1800 calorie ADA diet , CBC in AM.
[2023-10-17 05:28] LABS: BASOPHILS % (AUTO) 0.1 % (0.2-1.0); EOSINOPHILS # (AUTO) 0.1 x10^3/uL (0.0-0.2); EOSINOPHILS % (AUTO) 0.9 % (0.9-2.9); HEMOGLOBIN 10.1 g/dL (12.0-16.0); LYMPHOCYTES # (AUTO) 0.7 X10^3/uL (1.3-2.9); LYMPHOCYTES % (AUTO) 7.2 % (21.0-51.0); MEAN CORPUSCULAR HEMOGLOBIN 27.9 pg (27.0-34.0); MEAN CORPUSCULAR HGB CONC 33.4 g/dL (33.0-35.0); MEAN CORPUSCULAR VOLUME 83.5 fL (80.0-100.0); MEAN PLATELET VOLUME 10.6 fL (7.4-11.0); MONOCYTES # (AUTO) 0.6 x10^3/uL (0.3-0.8); MONOCYTES % (AUTO) 6.4 % (0.0-13.0); NEUTROPHILS # (AUTO) 7.8 x10^3/uL (2.2-4.8); NEUTROPHILS % (AUTO) 85.4 % (42.0-75.0); PLATELET COUNT 130 X10^3/uL (150.0-450.0); RED CELL DISTRIBUTION WIDTH 15.6 % (11.6-16.5); WHITE BLOOD COUNT 9.1 X10^3/uL (3.6-10.0)
[2023-10-17 05:42] LABS: BLOOD UREA NITROGEN 14 mg/dL (7-18); CALCIUM 7.8 mg/dL (8.5-10.1); CARBON DIOXIDE 28.1 mmol/L (21-32); CHLORIDE 106 mmol/L (98-107); COR NA(FOR HYPERGLY) 142 mmol/L (136-145); CREATININE 0.86 mg/dL (0.55-1.02); GLUCOSE 204 mg/dL (65-99); SODIUM 140 mmol/L (136-145); eGFR NON BLACK RACES > 60 (>60)
[2023-10-17 09:20] VITALS: TEMP 98.3
--- NOTE | 2023-10-17 10:07 | W.DIS.FURT ---
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 She underwent Angiojet peripheral based thrombectomy and repeat arteriogram showed a severe narrowing of the external iliac artery, probably from where the clamp had been placed .This was stented .Repeat arteriogram showed narrowing of the proximal anastomosis of the patch and after balloon angioplasty there was some bleeding which was cared for with a covered stent. After the second operation the patient received 2 units of packed red blood cells .Hemoglobin has remained stable .Her right foot is warm with good doppler signa lof the right anterior tibial artery .Her rest pain is resolved .She will be discharged today on her usual medications plus aspirin 81 milligrams daily .She has a drain in the right groin which will be cared for by her family, recording the amount of drainage .I will see her in follow up on Monday .I have given them my phone number if they need me for any reason prior to this .She also will be using a walker to help with ambulation . Vital Signs: Vital Signs (72 hours) 10/14/23 19:51 10/15/23 22:37 10/16/23 20:07 Temperature Pulse Rate 64 61 58 L Respiratory Rate 29 H 31 H 30 H Blood Pressure 170/76 126/58 148/66 O2 Sat by Pulse Oximetry 96 98 100 Oxygen Delivery Method 10/14/23 10:00 10/14/23 11:33 10/14/23 10:22 Temperature Pulse Rate 61 Respiratory Rate 23 22 Blood Pressure 217/84 O2 Sat by Pulse Oximetry 92 L Oxygen Delivery Method 10/14/23 10:22 10/14/23 10:23 10/14/23 10:23 Temperature Pulse Rate 64 65 Respiratory Rate 20 27 H Blood Pressure 198/82 O2 Sat by Pulse Oximetry 97 96 Oxygen Delivery Method 10/14/23 10:24 10/14/23 10:24 10/14/23 11:00 Temperature Pulse Rate 64 59 L Respiratory Rate 28 H 24 Blood Pressure 183/77 O2 Sat by Pulse Oximetry 96 95 Oxygen Delivery Method 10/14/23 11:01 10/14/23 11:01 10/14/23 11:02 Temperature Pulse Rate 62 Respiratory Rate 24 Blood Pressure 182/127 182/77 O2 Sat by Pulse Oximetry 94 L Oxygen Delivery Method 10/14/23 11:02 10/14/23 12:00 10/14/23 12:01 Temperature Pulse Rate 62 62 66 Respiratory Rate 26 H 26 H 27 H Blood Pressure O2 Sat by Pulse Oximetry 94 L 95 97 Oxygen Delivery Method 10/14/23 12:01 10/14/23 12:03 10/14/23 13:00 Temperature 97.6 F Pulse Rate 77 Respiratory Rate 20 37 H Blood Pressure 169/74 O2 Sat by Pulse Oximetry 91 L Oxygen Delivery Method 10/14/23 13:02 10/14/23 13:02 10/14/23 14:00 Temperature Pulse Rate 79 64 Respiratory Rate 29 H 23 Blood Pressure 181/80 O2 Sat by Pulse Oximetry 92 L 90 L Oxygen Delivery Method 10/14/23 15:00 10/14/23 16:00 10/14/23 16:02 Temperature Pulse Rate 62 64 63 Respiratory Rate 19 22 25 H Blood Pressure 160/67 O2 Sat by Pulse Oximetry 93 L 95 95 Oxygen Delivery Method Room Air 10/14/23 16:02 10/14/23 17:00 10/14/23 17:00 Temperature Pulse Rate 69 Respiratory Rate 29 H Blood Pressure 160/67 150/66 O2 Sat by Pulse Oximetry 95 Oxygen Delivery Method 10/14/23 18:10 10/14/23 18:00 10/14/23 18:00 Temperature Pulse Rate Respiratory Rate Blood Pressure 175/76 160/107 160/107 O2 Sat by Pulse Oximetry Oxygen Delivery Method 10/14/23 18:00 10/14/23 18:45 10/14/23 19:00 Temperature Pulse Rate 78 64 Respiratory Rate 44 H 29 H Blood Pressure O2 Sat by Pulse Oximetry 97 96 Oxygen Delivery Method Room Air 10/14/23 19:03 10/14/23 19:10 10/14/23 20:10 Temperature Pulse Rate Respiratory Rate 28 H 22 Blood Pressure 178/76 O2 Sat by Pulse Oximetry Oxygen Delivery Method 10/14/23 20:01 10/14/23 20:01 10/14/23 21:00 Temperature 98.4 F Pulse Rate 65 Respiratory Rate 28 H Blood Pressure 152/70 142/63 O2 Sat by Pulse Oximetry 96 Oxygen Delivery Method 10/14/23 21:00 10/14/23 22:00 10/14/23 22:00 Temperature Pulse Rate 60 58 L Respiratory Rate 13 22 Blood Pressure 140/64 O2 Sat by Pulse Oximetry 96 96 Oxygen Delivery Method 10/14/23 23:00 10/14/23 23:00 10/15/23 00:01 Temperature 98.9 F Pulse Rate 66 Respiratory Rate 35 H Blood Pressure 145/65 142/65 O2 Sat by Pulse Oximetry 99 Oxygen Delivery Method 10/15/23 00:01 10/15/23 01:04 10/15/23 01:04 Temperature Pulse Rate 59 L 59 L Respiratory Rate 21 28 H Blood Pressure 158/69 O2 Sat by Pulse Oximetry 96 96 Oxygen Delivery Method 10/15/23 02:00 10/15/23 02:00 10/15/23 03:00 Temperature Pulse Rate 66 Respiratory Rate 27 H Blood Pressure 164/70 170/73 O2 Sat by Pulse Oximetry 96 Oxygen Delivery Method 10/15/23 03:00 10/15/23 04:00 10/15/23 04:01 Temperature 99.1 F Pulse Rate 64 64 Respiratory Rate 27 H 11 L Blood Pressure 151/65 O2 Sat by Pulse Oximetry 94 L 96 Oxygen Delivery Method 10/15/23 05:00 10/15/23 05:00 10/15/23 06:00 Temperature Pulse Rate 61 Respiratory Rate 28 H Blood Pressure 152/69 157/69 O2 Sat by Pulse Oximetry 93 L Oxygen Delivery Method 10/15/23 06:00 10/15/23 07:00 10/15/23 07:00 Temperature Pulse Rate 62 Respiratory Rate 27 H Blood Pressure 184/76 O2 Sat by Pulse Oximetry 95 Oxygen Delivery Method Room Air 10/15/23 07:00 10/15/23 07:00 10/15/23 08:00 Temperature 98.2 F Pulse Rate 66 79 Respiratory Rate 28 H 31 H Blood Pressure O2 Sat by Pulse Oximetry 95 97 Oxygen Delivery Method Room Air 10/15/23 08:01 10/15/23 08:01 10/15/23 08:01 Temperature Pulse Rate 79 Respiratory Rate 28 H Blood Pressure 146/63 146/63 O2 Sat by Pulse Oximetry 97 Oxygen Delivery Method 10/15/23 08:01 10/15/23 09:00 10/15/23 08:01 Temperature Pulse Rate 65 Respiratory Rate 22 Blood Pressure 146/63 177/72 146/63 O2 Sat by Pulse Oximetry 99 Oxygen Delivery Method Room Air 10/15/23 08:01 10/15/23 09:00 10/15/23 09:00 Temperature Pulse Rate Respiratory Rate Blood Pressure 146/63 138/104 138/104 O2 Sat by Pulse Oximetry Oxygen Delivery Method 10/15/23 09:00 10/15/23 09:03 10/15/23 09:03 Temperature Pulse Rate 72 69 Respiratory Rate 20 28 H Blood Pressure 177/72 O2 Sat by Pulse Oximetry 98 99 Oxygen Delivery Method 10/15/23 09:03 10/15/23 09:03 10/15/23 10:00 Temperature Pulse Rate 61 Respiratory Rate 30 H Blood Pressure 177/72 177/72 O2 Sat by Pulse Oximetry 100 Oxygen Delivery Method 10/15/23 10:03 10/15/23 10:03 10/15/23 11:00 Temperature Pulse Rate 64 57 L Respiratory Rate 24 20 Blood Pressure 128/58 O2 Sat by Pulse Oximetry 99 99 Oxygen Delivery Method 10/15/23 11:01 10/15/23 11:01 10/15/23 12:00 Temperature 98.0 F Pulse Rate 64 Respiratory Rate 28 H Blood Pressure 138/64 139/62 O2 Sat by Pulse Oximetry 98 Oxygen Delivery Method 10/15/23 12:00 10/15/23 12:00 10/15/23 12:00 Temperature Pulse Rate 54 L Respiratory Rate 21 Blood Pressure 139/62 139/62 O2 Sat by Pulse Oximetry 96 Oxygen Delivery Method 10/15/23 12:59 10/15/23 13:01 10/15/23 13:02 Temperature Pulse Rate 70 70 Respiratory Rate 28 H 29 H Blood Pressure 100/57 O2 Sat by Pulse Oximetry 96 98 Oxygen Delivery Method 10/15/23 13:56 10/15/23 14:01 10/15/23 14:01 Temperature Pulse Rate 68 Respiratory Rate 29 H Blood Pressure 149/63 149/63 O2 Sat by Pulse Oximetry 97 Oxygen Delivery Method 10/15/23 14:02 10/15/23 15:00 10/15/23 15:01 Temperature Pulse Rate 67 61 64 Respiratory Rate 29 H 28 H 28 H Blood Pressure O2 Sat by Pulse Oximetry 95 96 96 Oxygen Delivery Method 10/15/23 15:01 10/15/23 15:31 10/15/23 16:00 Temperature Pulse Rate 59 L Respiratory Rate 20 9 L Blood Pressure 125/59 O2 Sat by Pulse Oximetry 96 Oxygen Delivery Method 10/15/23 16:00 10/15/23 16:29 10/15/23 17:00 Temperature 98.6 F Pulse Rate 61 Respiratory Rate 22 25 H Blood Pressure 148/64 O2 Sat by Pulse Oximetry 98 Oxygen Delivery Method 10/15/23 17:01 10/15/23 17:01 10/15/23 17:01 Temperature Pulse Rate 56 L Respiratory Rate 24 Blood Pressure 141/58 141/58 O2 Sat by Pulse Oximetry 98 Oxygen Delivery Method 10/15/23 17:01 10/15/23 18:00 10/15/23 18:04 Temperature Pulse Rate 71 66 Respiratory Rate 28 H 18 Blood Pressure 141/58 O2 Sat by Pulse Oximetry 100 93 L Oxygen Delivery Method 10/15/23 18:04 10/15/23 19:00 10/15/23 19:00 Temperature Pulse Rate 62 Respiratory Rate 29 H Blood Pressure 147/80 O2 Sat by Pulse Oximetry 98 Oxygen Delivery Method Room Air 10/15/23 19:01 10/15/23 19:01 10/15/23 20:02 Temperature 99.1 F Pulse Rate 61 Respiratory Rate 22 Blood Pressure 136/65 136/65 O2 Sat by Pulse Oximetry 97 Oxygen Delivery Method 10/15/23 20:59 10/15/23 21:00 10/15/23 22:00 Temperature Pulse Rate 62 Respiratory Rate Blood Pressure 152/63 126/58 O2 Sat by Pulse Oximetry 97 Oxygen Delivery Method 10/15/23 22:01 10/15/23 20:45 10/15/23 20:45 Temperature Pulse Rate 61 62 Respiratory Rate 31 H Blood Pressure O2 Sat by Pulse Oximetry 98 95 Oxygen Delivery Method Room Air 10/15/23 23:01 10/15/23 23:01 10/16/23 00:00 Temperature Pulse Rate 62 61 Respiratory Rate 29 H 18 Blood Pressure 134/58 O2 Sat by Pulse Oximetry 99 96 Oxygen Delivery Method 10/16/23 00:01 10/16/23 01:39 10/16/23 01:00 Temperature 98.9 F Pulse Rate 58 L Respiratory Rate 24 23 Blood Pressure 129/63 O2 Sat by Pulse Oximetry 97 Oxygen Delivery Method 10/16/23 01:00 10/16/23 02:00 10/16/23 02:00 Temperature Pulse Rate 61 Respiratory Rate 24 Blood Pressure 133/59 128/59 O2 Sat by Pulse Oximetry 94 L Oxygen Delivery Method 10/16/23 02:09 10/16/23 03:00 10/16/23 03:00 Temperature Pulse Rate 61 Respiratory Rate 14 24 Blood Pressure 151/67 O2 Sat by Pulse Oximetry 96 Oxygen Delivery Method 10/16/23 04:00 10/16/23 04:01 10/16/23 05:00 Temperature 99.0 F Pulse Rate 62 58 L Respiratory Rate 16 24 Blood Pressure 174/73 O2 Sat by Pulse Oximetry 97 97 Oxygen Delivery Method 10/16/23 05:01 10/16/23 06:01 10/16/23 06:01 Temperature Pulse Rate 60 Respiratory Rate 17 Blood Pressure 149/65 127/58 O2 Sat by Pulse Oximetry 95 Oxygen Delivery Method 10/16/23 07:00 10/16/23 07:00 10/16/23 10:07 Temperature 98.0 F Pulse Rate 63 75 Respiratory Rate 25 H 18 Blood Pressure 153/94 172/78 O2 Sat by Pulse Oximetry 95 97 Oxygen Delivery Method Room Air Nasal Cannula 10/16/23 10:12 10/16/23 10:17 10/16/23 10:22 Temperature Pulse Rate 72 71 68 Respiratory Rate 18 17 17 Blood Pressure 171/78 167/66 164/74 O2 Sat by Pulse Oximetry 97 97 97 Oxygen Delivery Method Nasal Cannula Nasal Cannula Nasal Cannula 10/16/23 10:27 10/16/23 10:32 10/16/23 10:37 Temperature Pulse Rate 68 66 70 Respiratory Rate 17 17 17 Blood Pressure 166/72 162/71 150/62 O2 Sat by Pulse Oximetry 96 96 96 Oxygen Delivery Method Nasal Cannula Nasal Cannula Nasal Cannula 10/16/23 11:00 10/16/23 11:15 10/16/23 11:30 Temperature 97.8 F 97.8 F 97.8 F Pulse Rate 65 68 65 Respiratory Rate 19 27 H 26 H Blood Pressure 152/67 157/70 140/63 O2 Sat by Pulse Oximetry 96 97 93 L Oxygen Delivery Method 10/16/23 11:45 10/16/23 12:00 10/16/23 13:00 Temperature 97.8 F 98.0 F 98.0 F Pulse Rate 63 62 65 Respiratory Rate 25 H 27 H 26 H Blood Pressure 136/61 150/67 156/72 O2 Sat by Pulse Oximetry 94 L 95 98 Oxygen Delivery Method 10/16/23 06:59 10/16/23 07:01 10/16/23 07:02 Temperature Pulse Rate 61 63 Respiratory Rate 15 25 H Blood Pressure 153/94 O2 Sat by Pulse Oximetry 97 95 Oxygen Delivery Method 10/16/23 10:56 10/16/23 11:00 10/16/23 11:00 Temperature Pulse Rate 69 67 Respiratory Rate 25 H Blood Pressure 152/67 O2 Sat by Pulse Oximetry 97 96 Oxygen Delivery Method 10/16/23 11:15 10/16/23 11:15 10/16/23 11:30 Temperature Pulse Rate 68 65 Respiratory Rate 27 H 32 H Blood Pressure 157/70 O2 Sat by Pulse Oximetry 97 93 L Oxygen Delivery Method 10/16/23 11:30 10/16/23 11:45 10/16/23 11:45 Temperature Pulse Rate 65 Respiratory Rate 28 H Blood Pressure 140/63 136/61 O2 Sat by Pulse Oximetry 94 L Oxygen Delivery Method 10/16/23 12:00 10/16/23 12:00 10/16/23 12:00 Temperature Pulse Rate 62 Respiratory Rate 27 H Blood Pressure 150/67 150/67 O2 Sat by Pulse Oximetry 95 Oxygen Delivery Method 10/16/23 12:15 10/16/23 12:15 10/16/23 12:30 Temperature Pulse Rate 66 62 Respiratory Rate 24 29 H Blood Pressure 148/67 O2 Sat by Pulse Oximetry 96 97 Oxygen Delivery Method 10/16/23 12:30 10/16/23 12:46 10/16/23 12:46 Temperature Pulse Rate 61 Respiratory Rate 29 H Blood Pressure 146/70 147/70 O2 Sat by Pulse Oximetry 98 Oxygen Delivery Method 10/16/23 13:00 10/16/23 13:00 10/16/23 13:16 Temperature Pulse Rate 60 66 Respiratory Rate 26 H 30 H Blood Pressure 156/72 O2 Sat by Pulse Oximetry 100 97 Oxygen Delivery Method 10/16/23 13:16 10/16/23 13:31 10/16/23 13:31 Temperature Pulse Rate 72 Respiratory Rate 34 H Blood Pressure 144/71 118/62 O2 Sat by Pulse Oximetry 98 Oxygen Delivery Method 10/16/23 14:00 10/16/23 14:01 10/16/23 14:01 Temperature 98.0 F Pulse Rate 69 67 Respiratory Rate 29 H 28 H Blood Pressure 110/53 O2 Sat by Pulse Oximetry 95 96 Oxygen Delivery Method 10/16/23 14:16 10/16/23 14:16 10/16/23 14:30 Temperature Pulse Rate 57 L Respiratory Rate 26 H Blood Pressure 141/65 138/62 O2 Sat by Pulse Oximetry 98 Oxygen Delivery Method 10/16/23 14:30 10/16/23 14:45 10/16/23 14:45 Temperature Pulse Rate 57 L 60 Respiratory Rate 24 39 H Blood Pressure 143/65 O2 Sat by Pulse Oximetry 98 98 Oxygen Delivery Method 10/16/23 15:00 10/16/23 15:00 10/16/23 15:15 Temperature 97.7 F Pulse Rate 52 L Respiratory Rate 20 Blood Pressure 141/64 136/61 O2 Sat by Pulse Oximetry 99 Oxygen Delivery Method 10/16/23 15:15 10/16/23 15:30 10/16/23 15:30 Temperature Pulse Rate 60 53 L Respiratory Rate 29 H 21 Blood Pressure 153/65 O2 Sat by Pulse Oximetry 98 99 Oxygen Delivery Method 10/16/23 15:45 10/16/23 15:45 10/16/23 16:00 Temperature Pulse Rate 57 L Respiratory Rate 24 Blood Pressure 139/67 151/74 O2 Sat by Pulse Oximetry 98 Oxygen Delivery Method 10/16/23 16:00 10/16/23 16:30 10/16/23 16:30 Temperature 97.7 F Pulse Rate 58 L 60 Respiratory Rate 25 H 0 L Blood Pressure 137/62 O2 Sat by Pulse Oximetry 98 98 Oxygen Delivery Method 10/16/23 17:00 10/16/23 17:00 10/16/23 18:00 Temperature Pulse Rate 61 67 Respiratory Rate 24 32 H Blood Pressure 153/72 O2 Sat by Pulse Oximetry 98 98 Oxygen Delivery Method 10/16/23 18:00 10/16/23 19:00 10/16/23 20:00 Temperature 98.1 F Pulse Rate 58 L 70 Respiratory Rate 30 H 30 H Blood Pressure 127/90 148/66 154/65 O2 Sat by Pulse Oximetry 100 99 Oxygen Delivery Method 10/16/23 20:15 10/16/23 20:15 10/16/23 19:00 Temperature Pulse Rate 62 Respiratory Rate Blood Pressure O2 Sat by Pulse Oximetry 100 Oxygen Delivery Method Room Air Room Air 10/16/23 21:00 10/16/23 22:00 10/16/23 23:00 Temperature Pulse Rate 71 63 61 Respiratory Rate 18 26 H 26 H Blood Pressure 142/62 120/56 130/67 O2 Sat by Pulse Oximetry 99 99 99 Oxygen Delivery Method 10/17/23 00:00 10/17/23 01:00 10/17/23 02:00 Temperature 98.3 F Pulse Rate 61 60 58 L Respiratory Rate 28 H 28 H 28 H Blood Pressure 134/60 133/55 133/61 O2 Sat by Pulse Oximetry 99 99 99 Oxygen Delivery Method 10/17/23 03:00 10/17/23 04:00 10/17/23 05:00 Temperature 97.8 F Pulse Rate 60 61 65 Respiratory Rate 26 H 28 H 22 Blood Pressure 148/65 154/63 168/72 O2 Sat by Pulse Oximetry 99 99 98 Oxygen Delivery Method 10/17/23 06:00 10/16/23 19:00 10/16/23 19:01 Temperature Pulse Rate 67 58 L 58 L Respiratory Rate 20 21 23 Blood Pressure 132/63 O2 Sat by Pulse Oximetry 100 100 100 Oxygen Delivery Method 10/16/23 19:01 10/16/23 20:00 10/16/23 20:01 Temperature Pulse Rate 55 L 59 L Respiratory Rate 30 H 29 H Blood Pressure 148/66 O2 Sat by Pulse Oximetry 99 99 Oxygen Delivery Method 10/16/23 20:01 10/16/23 21:00 10/16/23 21:01 Temperature Pulse Rate 77 74 Respiratory Rate 34 H 30 H Blood Pressure 151/65 O2 Sat by Pulse Oximetry 99 99 Oxygen Delivery Method 10/16/23 21:01 10/16/23 22:00 10/16/23 22:01 Temperature Pulse Rate 65 64 Respiratory Rate 30 H 30 H Blood Pressure 142/62 O2 Sat by Pulse Oximetry 98 98 Oxygen Delivery Method 10/16/23 22:01 10/16/23 23:00 10/16/23 23:00 Temperature Pulse Rate 61 Respiratory Rate 30 H Blood Pressure 120/56 120/67 O2 Sat by Pulse Oximetry 97 Oxygen Delivery Method 10/17/23 00:00 10/17/23 00:00 10/17/23 01:00 Temperature Pulse Rate 58 L 61 Respiratory Rate 29 H 27 H Blood Pressure 134/60 O2 Sat by Pulse Oximetry 97 97 Oxygen Delivery Method 10/17/23 01:01 10/17/23 01:01 10/17/23 02:00 Temperature Pulse Rate 62 61 Respiratory Rate 27 H 28 H Blood Pressure 133/59 O2 Sat by Pulse Oximetry 96 98 Oxygen Delivery Method 10/17/23 02:00 10/17/23 03:00 10/17/23 03:02 Temperature Pulse Rate 61 61 Respiratory Rate 34 H 21 Blood Pressure 133/61 O2 Sat by Pulse Oximetry 99 97 Oxygen Delivery Method 10/17/23 03:02 10/17/23 04:00 10/17/23 04:01 Temperature Pulse Rate 60 63 Respiratory Rate 30 H 30 H Blood Pressure 148/65 O2 Sat by Pulse Oximetry 95 99 Oxygen Delivery Method 10/17/23 04:01 10/17/23 05:00 10/17/23 05:11 Temperature Pulse Rate 66 Respiratory Rate 33 H Blood Pressure 152/63 168/72 O2 Sat by Pulse Oximetry 98 Oxygen Delivery Method 10/17/23 05:11 10/17/23 06:00 10/17/23 06:01 Temperature Pulse Rate 72 65 65 Respiratory Rate 35 H 25 H 29 H Blood Pressure O2 Sat by Pulse Oximetry 99 100 100 Oxygen Delivery Method 10/17/23 06:01 10/17/23 07:00 10/17/23 07:01 Temperature Pulse Rate 60 58 L Respiratory Rate 20 29 H Blood Pressure 132/63 O2 Sat by Pulse Oximetry 100 96 Oxygen Delivery Method 10/17/23 07:01 10/17/23 08:00 10/17/23 07:00 Temperature 98.3 F Pulse Rate 74 Respiratory Rate 37 H Blood Pressure 155/70 O2 Sat by Pulse Oximetry 100 Oxygen Delivery Method Room Air 02/27/24 08:33 10/17/23 08:33 10/17/23 09:00 Temperature Pulse Rate 71 66 Respiratory Rate 27 H 37 H Blood Pressure 141/63 O2 Sat by Pulse Oximetry 100 100 Oxygen Delivery Method 10/17/23 09:01 10/17/23 09:01 Temperature Pulse Rate 68 Respiratory Rate 36 H Blood Pressure 135/60 O2 Sat by Pulse Oximetry 99 Oxygen Delivery Method Labs: Laboratory Last Values WBC 9.1 X10^3/uL (3.6-10.0) 10/17/23 04:16 RBC 3.60 X10^6/uL (3.5-5.4) 10/17/23 04:16 Hgb 10.1 g/dL (12.0-16.0) L 10/17/23 04:16 Hct 30.0 % (36.0-47.0) L 10/17/23 04:16 MCV 83.5 fL (80.0-100.0) 10/17/23 04:16 MCH 27.9 pg (27.0-34.0) 10/17/23 04:16 MCHC 33.4 g/dL (33.0-35.0) 10/17/23 04:16 RDW 15.6 % (11.6-16.5) 10/17/23 04:16 Plt Count 130 X10^3/uL (150.0-450.0) L 10/17/23 04:16 Plt Count Comment Cancelled 10/17/23 04:16 MPV 10.6 fL (7.4-11.0) 10/17/23 04:16 Neut % (Auto) 85.4 % (42.0-75.0) H 10/17/23 04:16 Lymph % (Auto) 7.2 % (21.0-51.0) L 10/17/23 04:16 [place] % (Auto) 6.4 % (0.0-13.0) 10/17/23 04:16 Eos % (Auto) 0.9 % (0.9-2.9) 10/17/23 04:16 Baso % (Auto) 0.1 % (0.2-1.0) L 10/17/23 04:16 Neut # (Auto) 7.8 x10^3/uL (2.2-4.8) H 10/17/23 04:16 Lymph # (Auto) 0.7 X10^3/uL (1.3-2.9) L 10/17/23 04:16 [place] # (Auto) 0.6 x10^3/uL (0.3-0.8) 10/17/23 04:16 Eos # (Auto) 0.1 x10^3/uL (0.0-0.2) 10/17/23 04:16 Baso # (Auto) 0.0 X10^3/uL (0.0-0.1) 10/17/23 04:16 Absolute Nucleated RBC 0.0 /100WBC 10/17/23 04:16 Total Counted Cancelled 10/17/23 04:16 Neutrophils % (Manual) Cancelled 10/17/23 04:16 Band Neutrophils % Cancelled 10/17/23 04:16 Lymphocytes % (Manual) Cancelled 10/17/23 04:16 Monocytes % (Manual) Cancelled 10/17/23 04:16 Eosinophils % (Manual) Cancelled 10/17/23 04:16 Basophils % (Manual) Cancelled 10/17/23 04:16 Metamyelocytes % Cancelled 10/17/23 04:16 Myelocytes % Cancelled 10/17/23 04:16 Promyelocytes % Cancelled 10/17/23 04:16 Nucleated RBCs Cancelled 10/17/23 04:16 Atypical Lymphocytes Cancelled 10/17/23 04:16 Blast Cells Cancelled 10/17/23 04:16 Smudge Cells Cancelled 10/17/23 04:16 Toxic Granulation Cancelled 10/17/23 04:16 Dohle Bodies Cancelled 10/17/23 04:16 Kunal Rods Cancelled 10/17/23 04:16 Plt Clumps, EDTA Cancelled 10/17/23 04:16 Giant Platelets Cancelled 10/17/23 04:16 Plt Morphology Comment Cancelled 10/17/23 04:16 RBC Morphology Cancelled 10/17/23 04:16 Dimorphic RBCs Cancelled 10/17/23 04:16 Polychromasia Cancelled 10/17/23 04:16 Hypochromasia Cancelled 10/17/23 04:16 Poikilocytosis Cancelled 10/17/23 04:16 Basophilic Stippling Cancelled 10/17/23 04:16 Anisocytosis Cancelled 10/17/23 04:16 Microcytosis Cancelled 10/17/23 04:16 Macrocytosis Cancelled 10/17/23 04:16 Spherocytes Cancelled 10/17/23 04:16 Pappenheimer Bodies Cancelled 10/17/23 04:16 Sickle Cells Cancelled 10/17/23 04:16 Target Cells Cancelled 10/17/23 04:16 Tear Drop Cells Cancelled 10/17/23 04:16 Ovalocytes Cancelled 10/17/23 04:16 Stomatocytes Cancelled 10/17/23 04:16 Helmet Cells Cancelled 10/17/23 04:16 [place] Bodies Cancelled 10/17/23 04:16 [place] Rings Cancelled 10/17/23 04:16 [place] Cells Cancelled 10/17/23 04:16 Crenated Cell Cancelled 10/17/23 04:16 Acanthocytes (Spur) Cancelled 10/17/23 04:16 Rouleaux Cancelled 10/17/23 04:16 Schistocytes Cancelled 10/17/23 04:16 PT 13.1 SECONDS (11.8-14.3) 10/11/23 20:18 INR Target Range - 10/11/23 20:18 INR 1.01 (0.8-1.3) 10/11/23 20:18 APTT 53.0 SECONDS (22.9-36.5) H 10/12/23 10:31 PTT Comment - 10/12/23 10:31 Sodium 140 mmol/L (136-145) 10/17/23 04:16 Corrected Sodium 142 mmol/L (136-145) 10/17/23 04:16 Potassium 4.0 mmol/L (3.5-5.1) 10/17/23 04:16 Chloride 106 mmol/L (98-107) 10/17/23 04:16 Carbon Dioxide 28.1 mmol/L (21-32) 10/17/23 04:16 BUN 14 mg/dL (7-18) 10/17/23 04:16 Creatinine 0.86 mg/dL (0.55-1.02) 10/17/23 04:16 Est GFR (MDRD) Af Amer > 60 (>60) 10/17/23 04:16 Est GFR (MDRD) Non-Af > 60 (>60) 10/17/23 04:16 Glucose 204 mg/dL (65-99) H 10/17/23 04:16 POC Glucose (mg/dL) 300 mg/dL (65-99) H 10/17/23 05:16 Calcium 7.8 mg/dL (8.5-10.1) L 10/17/23 04:16 Corrected Calcium 10.5 mg/dL (8.5-10.1) H 10/11/23 20:18 Magnesium 1.9 mg/dL (2.0-2.9) L 10/16/23 04:00 Total Bilirubin 0.30 mg/dL (0.2-1.0) 10/11/23 20:18 AST 19 Units/L (15-37) 10/11/23 20:18 ALT 13 Units/L (12-78) 10/11/23 20:18 Alkaline Phosphatase 96 Units/L (46-116) 10/11/23 20:18 Total Protein 8.4 g/dL (6.4-8.2) H 10/11/23 20:18 Albumin 3.2 g/dL (3.4-5.0) L 10/11/23 20:18 Globulin 5.2 g/dL (2.5-4.5) H 10/11/23 20:18 Albumin/Globulin Ratio 0.6 Ratio (1.1-2.1) L 10/11/23 20:18 Blood Type A POSITIVE 10/16/23 08:45 Antibody Screen Negative 10/16/23 08:45 Crossmatch See Detail 10/16/23 08:45 Reason For Visit: CRITICAL ISCHEMIA RIGHT LEG Discharge Date Discharge Date: 10/17/23 Discharge Diagnosis All Active Problems (Updated 10/14/23 @ 20:47 by Sorin Morel) Atherosclerosis of [place] arteries of extremities with rest pain, right leg (Acute) Atherosclerosis of [place] arteries of extremities with rest pain, left leg (Acute) Chronic ischemic heart disease, unspecified (Acute) Dyslipidemia (Acute) Essential (primary) hypertension (Acute) Type 2 diabetes mellitus without complications (Acute) Plan of Treatment: Continue with present treatment and follow up plan. Pt is to keep follow up appointment as instructed and take medications as ordered. Discharge Medications Discharge Medications: No Known Drug Allergies [NKDA] Allergy (Verified 10/11/23 20:55) CONTINUE taking the following medications carvedilol 3.125 mg tablet 3.125 mg PO BID 10/13/23 [History] clopidogrel 75 mg tablet 75 mg PO DAILY 10/13/23 [History] glipizide 10 mg tablet, extended release 24 hr 10 mg PO DAILY 10/13/23 [History] hydrochlorothiazide 25 mg tablet 25 mg PO DAILY 10/13/23 [History] hydrocodone 7.5 mg-acetaminophen 325 mg tablet 1 tab PO QID PRN 10/13/23 [History] isosorbide mononitrate 30 mg tablet,extended release 24 hr 30 mg PO DAILY 10/13/23 [History] lorazepam 0.5 mg tablet 0.5 mg PO QDAY 10/13/23 [History] losartan 100 mg tablet 100 mg PO QDAY 10/13/23 [History] rosuvastatin 40 mg tablet 40 mg PO QDAY 10/13/23 [History] sitagliptin phos 100 mg-metformin ER 1,000 mg tablet,extend rel 24h mp (Janumet XR) 1 tab PO QPM 10/13/23 [History] trazodone 50 mg tablet 50 mg PO QHS 10/13/23 [History] aspirin 81 mg po daily Discharge Disposition Assessment: see hospital course Discharge Plan Discharge Plan Hospital Course: This is a 89 year old female with history of diabetes and previous vascular interventions who presented with rest pain of the right foot .At the time of initial evaluation I could palpate no pulse in the right groin .She was admitted and placed on a Heparin drip .CT angiogram was read as no significant problem with the inflow of the right leg ,however when taken to the operating Suite on OCT 12 on table arteriogram showed 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 She underwent Angiojet peripheral based thrombectomy and repeat arteriogram showed a severe narrowing of the external iliac artery, probably from where the clamp had been placed .This was stented .Repeat arteriogram showed narrowing of the proximal anastomosis of the patch and after balloon angioplasty there was some bleeding which was cared for with a covered stent. After the second operation the patient received 2 units of packed red blood cells .Hemoglobin has remained stable .Her right foot is warm with good doppler signa lof the right anterior tibial artery .Her rest pain is resolved .She will be discharged today on her usual medications plus aspirin 81 milligrams daily .She has a drain in the right groin which will be cared for by her family, recording the amount of drainage .I will see her in follow up on Monday .I have given them my phone number if they need me for any reason prior to this .She also will be using a walker to help with ambulation . Patient Disposition: HOME, SELF-CARE Condition: Stable Health Concerns: Post Hospitalization: new medications and changes needed to prevent readmission or further decline. Pt educated and given instructions on all concerns. Care Plan Goals: see hospital course Plan of Treatment: Continue with present treatment and follow up plan. Pt is to keep follow up appointment as instructed and take medications as ordered. Assessment: see hospital course Prescription drug monitoring program results: PDMP was not reviewed Prescriptions: New aspirin 81 mg tablet,chewable 81 mg PO QDAY Qty: 90 0RF Continued trazodone 50 mg tablet 50 mg PO QHS glipizide 10 mg tablet extended release 24hr 10 mg PO DAILY isosorbide mononitrate 30 mg tablet extended release 24 hr 30 mg PO DAILY clopidogrel 75 mg tablet 75 mg PO DAILY carvedilol 3.125 mg tablet 3.125 mg PO BID lorazepam 0.5 mg tablet 0.5 mg PO QDAY hydrocodone-acetaminophen 7.5-325 mg tablet 1 tab PO QID PRN hydrochlorothiazide 25 mg tablet 25 mg PO DAILY losartan 100 mg tablet 100 mg PO QDAY rosuvastatin 40 mg tablet 40 mg PO QDAY Janumet XR 100-1,000 mg tablet, ER multiphase 24 hr 1 tab PO QPM Follow ups/Referrals Follow ups/Referrals: Sorin Morel [Primary Care Provider] - 10/23/23 4:00 pm Instructions Instructions: Bleeding Precautions When on Anticoagulant Therapy, Adult, Blood Transfusion, Adult, [id number], Endovascular Therapy for Peripheral Vascular Disease, Care After, Coronary Angiogram, Care After Stand Alone Forms: Excuse From Work or School, Post Hospital Follow Up Care
[2023-10-17 14:13] VITALS: BP 147/69; PULSE 60; RESP 30; O2SAT 99
--- NOTE | 2023-10-18 16:06 | DR.OPNOTE ---
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 NARRATIVE : The patient was taken to the operative suite and placed in the supine position. The left groin and entire right leg were prepped and draped in sterile fashion. The patient was given intravenous sedation supervised by myself. Time out for the procedure obtained. Ultrasound used to identify the left femoral artery and the skin overlying it infiltrated with 0.5% Marcaine. Ultrasound then used to guide puncture of the left femoral artery and a 0.012 inch guide wire was placed. Incision made over the guide wire at the skin edge with a # 11 knife blade and a micro sheath placed over the guide wire into the left femoral artery The small guidewire exchanged for a 0.035 inch Advantage glide wire and the micro sheath exchanged for a 5 Fr vascular sheath Patient given 5000 units of intravenous heparin. Omni catheter was placed over the guide wire into the aorta and diagnostic aortogram carried out with the power injector showing stent in the proximal right common iliac artery, thrombosis of right common and external iliac arteries and thrombosis of right common femoral artery at site of recent right femoral endarteretomy and patch angioplasty, calcified but patent right suerficial and right popliteal arteries . Runoff to the right foot is mainly by the right peroneal artery with adequte collateral filling around the right foot . Omni catheter was used to steer the guide wire down the right common iliac artery to the distal right external iliac artery .The 5 Fr sheath in the left groin then exchanged for a 7 Fr Catapult sheath which was parked in the right common iliac artery .[place] catheter and the guide wire were used to traverse the arteries of the right leg ultimately ending in the right peroneal artery . This was selective catheterization. 0.035 inch wire removed and exchanged for a 0.014 inch wire. Over this wire we placed the Angiojet device and performed peripheral based atherectomy of the right common iliac , right external iliac and right common femoral arteries ( moving the sheath back a necessary). At this point we placed the Opti Cross untrasound probe showing good removal of clot of the right leg affected arteries and near total occlusion of the right external iliac artery below the common iliac stent, which is new and probably related to clamping of the old calcified vessel at the time of the endarterectomy and patch angioplasty last week as well as significant narrowing of the proximal part of the right femoral artery patch . [place] catheter used to exchange the 0.014 inch wire for a 0.035 inch wire and over the wire we place an Silvia 7mm x 120 mm stent and balloon dilated it with a 7 mm balloon . The common femoral artery proximally including the patch was ballooned with the 7mm balloon. Completion follow up arteriogram showed extravasation form the proximal part of the patch with blood coming out around the previously placed CHANEL drain in the right groin. Over the wire we placed a Stout Viabahn covered stent over the area of extravasation and deployed it . Repeat arteriogram showed resolution of the extravasation with good flow into the right superficial femoral artery. Repeat IVUS showed resolution of the stenosis of the right external iliac artery and proximal part of the right femoral patch . All wires and devices removed. The 7 Fr sheath was pulled back into the aorta and a 0.035 inch wire placed. The Catapult sheath exchanged for an Angioseal device used to close the puncture of the left femoral artery. .Dressing applied to the left groin. The patient taken to same day surgery in good condition. 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 Type of Fluids Used:: Lactated Ringers (500 c) and Blood and Blood Products (i unit PRBCs) Total Amount of Fluid Infused:: 850 cc Urine output: 450 cc EBL: 300 cc Hardware: Freddy 7x 60 mm stent right external iliac artery, covered Stout Viabahn stent placed proximal right common femoral artery over area of bleeding from the proximal part of the patch. Complications:: none Needle/Sponge Count:: correct Disposition/Condition: Pt. tolerated procedure without difficulty. Patietn and taken to CCU in stable condition.
== END 2023-10-17 13:35 | disposition home or self-care (01) | DRG 272 ==
LOC: ICU 18:27
PROVIDERS: ADMIT Surgery; ATTEND Surgery
DX: I10 Essential (primary) hypertension; E78.5 Hyperlipidemia, unspecified; I25.10 Atherosclerotic heart disease of native coronary artery without angina pectoris; E11.65 Type 2 diabetes mellitus with hyperglycemia; R79.1 Abnormal coagulation profile; I70.221 Atherosclerosis of native arteries of extremities with rest pain, right leg; R26.89 Other abnormalities of gait and mobility; Z59.86 Financial insecurity; Z63.8 Other specified problems related to primary support group; Z59.19 Other inadequate housing